=== PATIENT | female | born 1950 | race Caucasian/White ===

== ENCOUNTER 2020-11-07 12:56 | Outpatient (REF) | payer MEDICARE, SELFPAY | END 2020-11-07 12:57 | disposition home or self-care (01) | LOC: HO.LAB 12:56 | PROVIDERS: Visit Provider Internal Medicine | DX: Z20.822 Contact with and (suspected) exposure to COVID-19 (principal) | CPT/HCPCS: 36415; C9803; U0003 ==

== ENCOUNTER → 2022-06-25 14:35 | Outpatient (BNVA) | payer MEDICARE, SELFPAY | PROVIDERS: PCP Family Medicine; Visit Provider Hospitalist | DX: J44.9 Chronic obstructive pulmonary disease, unspecified (principal); R91.8 Other nonspecific abnormal finding of lung field; I50.9 Heart failure, unspecified; I48.91 Unspecified atrial fibrillation | CPT/HCPCS: 99212 ==

== ENCOUNTER → 2022-10-20 09:00 | Outpatient (BNVA) | payer MEDICARE, MEDICAID, SELFPAY | PROVIDERS: PCP Internal Medicine; Visit Provider Hospitalist | DX: J44.9 Chronic obstructive pulmonary disease, unspecified (principal); R91.8 Other nonspecific abnormal finding of lung field; I50.9 Heart failure, unspecified; I48.91 Unspecified atrial fibrillation | CPT/HCPCS: 99212 ==

== ENCOUNTER 2023-04-04 09:43 | Outpatient (REF) | payer MEDICARE, MEDICAID, SELFPAY ==
--- NOTE | 2023-04-04 10:47 | PFT_ITS ---
FLOWS: 1. FEV1 60% of predicted at 1.43 L. 2. FVC 84% of predicted at 2.62 L. 3. FEV1 to FVC ratio of 0.55. 4. No bronchodilator response. LUNG VOLUMES: 1. Total lung capacity 95% of predicted at 4.92 L. 2. Residual volume 93% of predicted at 2.09 L. 3. Slow vital capacity 94% of predicted at 2.81 L. 4. Expiratory reserve volume 129% of predicted at 0.96 L. 5. Diffusion capacity is severely decreased. IMPRESSION: Moderate obstructive ventilatory defect with no bronchodilator response. Decreased diffusion capacity suggests emphysema. Marvin Dejesus MD AP/MODL / [id number] MTDD
== END 2023-04-04 09:44 | disposition home or self-care (01) ==
LOC: HO.RESP 09:43
PROVIDERS: PCP Internal Medicine; Visit Provider Hospitalist
DX: J44.9 Chronic obstructive pulmonary disease, unspecified (principal)
CPT/HCPCS: 94060; 94727; 94729

== ENCOUNTER → 2023-04-04 10:47 | Outpatient (BNV) | payer MEDICARE, MEDICAID, SELFPAY | PROVIDERS: PCP Internal Medicine; Visit Provider Internal Medicine Pulmonary Disease | DX: J44.9 Chronic obstructive pulmonary disease, unspecified (principal) | CPT/HCPCS: 94060; 94727; 94729 ==

== ENCOUNTER 2023-05-13 09:27 | Outpatient (AMB) | payer MEDICARE, MEDICAID, SELFPAY ==
--- NOTE | 2023-05-13 09:34 | A.OFFVIS_ITS ---
Intake Vital Signs 05/13/23 09:35 Height 5 ft 5 in Weight 112 lb 6.972 oz BMI 18.7 BP 148/60 H Blood Pressure Location Rt brachial Position Sitting Pulse 57 Pulse Source Pulse Oximeter Pulse Oximetry (%) 94 Oxygen Delivery Method Room Air Intake Visit Reasons: Shortness of breath Datastage Consultant Required: No Allergies meperidine [Demerol] Allergy (Unknown, Verified 05/13/23 09:37) upset stomach oxycodone Allergy (Unknown, Verified 05/13/23 09:37) Vomiting Codeine Allergy (Unknown, Uncoded 05/13/23 09:37) Hives Darvocet Adverse Reaction (Unknown, Uncoded 05/13/23 09:37) Vomiting HPI HPI Comments History of Present Illness Details 06/25/2022 the patient is here for hospital follow-up visit. The patient is a 71 year woman with significant COPD Who presented to [facility] ED with worsening shortness of breath and palpitations. She was admitted to [facility] with Congestive heart failure exacerbation and also With atrial fibrillation with rapid ventricular response. She was appropriately treated. She did have chest x-ray demonstrating evidence of cephalization interstitial edema. Her echocardiogram demonstrated a decreased ejection fraction. She will be following closely with Cardiology. She did require oxygenation while she was in a hospital. She was able to be weaned off. Now the patient is recovering but she still feels very weak. 10/20/2021 the patient is here for hospital follow-up visit. The patient overall has been doing better. She did develop AFib with rapid ventricular response and congestive heart failure resulting in hospitalization. The patient had cardiac medication change. She was also evaluated by her labor union business representative and primary care doctor. She because she was ill she could not get a pulmonary function studies in therefore did not start pulmonary rehabilitation. She still getting situated with the new medications. Therefore will go ahead and postpone her breathing studies for another 6 months. She does continue on the Anoro inhaler. She feels is affective below she is waking up at nighttime with shortness of breath and chest congestion. She will use the nebulizer at nighttime she does have an Acapella valve that she can use at works well. Will go ahead and switch over her Anoro to Trelegy with the hope that it helps decrease date chest congestion and her nighttime symptoms. The patient follow- up in 6 months with PFTs. 05/13/2023 the patient is here for a pulmonary follow-up visit. Patient overall doing well. She continues use her respiratory therapy with good effect. She has not had to use any prednisone or has had any hospitalizations. She has been tolerating the Trelegy inhaler well. She is rinsing her mouth well. She did undergo pulmonary function studies which we personally reviewed. She does have a moderate obstruction but a severe diffusion impairment. She does have oxygen available. She does use it with sleep and also with activity. The patient has had also some hyperinflation on her x-ray. She will go ahead and repeat that at this time. Otherwise follow-up in a year. If any new issues arise the patient is to call for an earlier assessment. [facility] Medical History (Updated 06/27/22 @ 23:25 by Ej Mobley MD) Afib CHF (congestive heart failure) COPD (chronic obstructive pulmonary disease) Pulmonary nodules Social History (Updated 06/25/22 @ 15:16 by FLAKO Marin) Patient Tobacco Use Status: Former Tobacco user Tobacco use type: Cigarette Years Smoked: Quit 06/2022 Review of Systems Const Reports lethargy and Reports weight loss Eyes Denies change in vision ENT Denies change in voice Card Denies chest pain, Reports palpitations and Reports dyspnea on exertion Resp Reports chest congestion, Reports cough and Reports dyspnea on exertion GI Reports no additional complaints, Denies melena and Denies hematochezia Musc Reports no additional complaints Skin/Breast Denies rash Neuro Reports no additional complaints Endo Reports palpitations Physical Exam Vital Signs: Last Vital Signs Pulse 57 05/13/23 09:35 BP 148/60 H 05/13/23 09:35 Pulse Ox 94 05/13/23 09:35 Oxygen Delivery Method Room Air 05/13/23 09:35 BMI result Body Mass Index 18.7 Const General: comfortable HEENT Head: Yes normal to inspection Eyes General: appearance normal, both eyes and all related structures Neck Neck: Yes supple Chest Chest palpation & inspection: normal inspection of the chest Resp Auscultation: diminished lung sounds Cardio Rate: regular rate Rhythm: regular rhythm Heart sounds: S1 normal heart sound present and S2 normal heart sound present Extrem General: Yes no clubbing, cyanosis or edema Assessment & Plan Assessment & Plan (1) COPD (chronic obstructive pulmonary disease): Code(s): J44.9 - Chronic obstructive pulmonary disease, unspecified (2) Pulmonary nodules: Code(s): R91.8 - Other nonspecific abnormal finding of lung field (3) CHF (congestive heart failure): Code(s): I50.9 - Heart failure, unspecified (4) Afib: Code(s): I48.91 - Unspecified atrial fibrillation Plan continue Trelegy LARISSA as needed, needs a nebulizer CXR consider Pulmonary rehab Diuresis as tolerated Keep Amiodarone to the lowest most effective dose to minimize adverse effects F/U 6 months Orders: Orders XR chest 2V 05/13/23 J44.9 - Chronic obstructive pulmonary disease, unspecified Coding Level of Care Code Est Pt Level 4 (71827) Diagnoses COPD (chronic obstructive pulmonary disease) J44.9 Pulmonary nodules R91.8 CHF (congestive heart failure) I50.9 Afib I48.91 Time Spent (min) 18
[2023-05-13 09:35] VITALS: BP 148/60; PULSE 57; O2SAT 94; BMI 18.7
== END 2023-05-13 09:57 | disposition home or self-care (01) ==
PROVIDERS: PCP Internal Medicine; Visit Provider Hospitalist
DX: J44.9 Chronic obstructive pulmonary disease, unspecified (principal); R91.8 Other nonspecific abnormal finding of lung field; I50.9 Heart failure, unspecified; I48.91 Unspecified atrial fibrillation
CPT/HCPCS: 99214

== ENCOUNTER → 2023-05-13 09:27 | Outpatient (BNVA) | payer MEDICARE, MEDICAID, SELFPAY | PROVIDERS: PCP Internal Medicine; Visit Provider Hospitalist | DX: J44.9 Chronic obstructive pulmonary disease, unspecified (principal); R91.8 Other nonspecific abnormal finding of lung field; I50.9 Heart failure, unspecified; I48.91 Unspecified atrial fibrillation; Z79.899 Other long term (current) drug therapy | CPT/HCPCS: 99212 ==